=== PATIENT | male | born 1985 | race Caucasian/White ===

== ENCOUNTER → 2016-08-26 | Outpatient (CLI) | payer OTHER ==
--- NOTE | 2016-08-26 14:13 | RAD ---
EXAM: Pelvis, single view. HISTORY: Pain. COMPARISON: None. FINDINGS: A frontal view of the pelvis is obtained. There is no fracture, dislocation or subluxation. There is a tiny left os acetabulum. The femoral heads are normal in configuration and seated appropriately. IMPRESSION: No acute osseous finding.
== END | disposition home or self-care (01) ==
LOC: DXRADRC 13:58
PROVIDERS: ATTEND Orthopaedic Surgery Sports Medicine
DX: M25.552 Pain in left hip (principal)
CPT/HCPCS: 76010